=== PATIENT | male | born 1960 | race Caucasian/White ===

== ENCOUNTER 2017-10-20 10:02 | Emergency (ER) | payer OTHER ==
[2017-10-20] MEDS ORDERED: NS 500 ML IV ONE (10:57)
[2017-10-20] MEDS ORDERED: ONDANSETRON 4 MG/2 ML VIAL IVP ONE (10:58)
--- NOTE | 2017-10-20 11:01 | EDPHY ---
H & P Stated Complaint: Epigastric pain since midnight. - Personal History Current Tetanus Diphtheria and Acellular Pertussis (TDAP): Yes - Medical/Surgical History Hx Asthma: Yes Hx Chronic Respiratory Disease: No Hx Diabetes: No Hx Cardiac Disease: Yes Hx Renal Disease: No Hx Cirrhosis: No Hx Alcoholism: No Hx HIV/AIDS: No Hx Splenectomy or Spleen Trauma: No Other PMH: Asthma. Heart valve defect. HTN. - Social History Smoking Status: Never smoked Time Seen by Provider: 10/20/17 10:46 HPI/ROS: CHIEF COMPLAINT: Epigastric pain, chest discomfort HISTORY OF PRESENT ILLNESS: 57-year-old male arrives via private vehicle with his complaining of epigastric abdominal pain, "heartburn" nausea since midnight. The pain was improved with 3 hot showers, back to back. History of daily marijuana use for several decades. Denies: Back pain, vomiting, syncope or near syncope, headache, jaw pain, arm pain, syncope, near syncope. PRIMARY CARE PROVIDER: Julio REVIEW OF SYSTEMS: A ten point review of systems was performed and is negative with the exception of the items mentioned in the HPI PAST MEDICAL & SURGICAL HISTORY: COPD. Hypertension. No history of known cardiac disease. No history of abdominal surgeries or chronic pathology. SOCIAL HISTORY:Daily marijuana use. PHYSICAL EXAM (Prior to examination, patient consented to physical exam, hands were washed and my usual and customary physical exam procedures followed) 1) GENERAL: Well-developed, well-nourished, alert and oriented. Appears uncomfortable 2) HEAD: Normocephalic, atraumatic 3) HEENT: Pupils equal, round, reactive to light bilaterally. Sclera anicteric. Nasopharynx, oropharynx, clear, no lesions. 4) NECK: Full range of motion, no meningeal signs. No carotid bruit 5) LUNGS: Clear auscultation bilaterally, no wheezes, no rhonchi, no retractions. 6) HEART: Regular rate and rhythm, no murmur, no heave, no gallop. 7) ABDOMEN: tender to palpation midline epigastrium, no palpable or pulsatile mass. No distension. Soft. no focal tenderness, negative McBurney's, negative Guevara's, negative Rovsing's, negative peritoneal sign, 8) MUSCULOSKELETAL: Moving all extremities, no focal areas of tenderness, no obvious trauma. No peripheral edema or discoloration. Negative Homans no palpable cord 9) BACK: No CVA tenderness, no midline vertebral tenderness, no fluctuance, no step-off, no obvious trauma, no visual or palpable abnormality. 10) SKIN: No rash, no petechiae. 11) Psychiatric: Patient is oriented X 3, there is no agitation. DIFFERENTIAL DIAGNOSIS: In no particular order, including but not limited to biliary colic, cholecystitis, peptic ulcer disease, pancreatitis, and gastroenteritis. This is a partial list of diagnoses considered. These considerations are based on history, physical exam, past history and reassessment. (Barbara Nick) Constitutional: Initial Vital Signs Temperature (C) 36.5 C 10/20/17 10:09 Heart Rate 74 10/20/17 10:09 Respiratory Rate 18 10/20/17 10:09 Blood Pressure 184/103 H 10/20/17 10:09 O2 Sat (%) 97 10/20/17 10:09 O2 Delivery Mode Room Air O2 (L/minute) 2 Allergies/Adverse Reactions: No Known Allergies Allergy (Unverified 10/20/17 10:12) Home Medications: Medication Instructions Recorded Albuterol 10/20/17 Lisinopril 10/20/17 Medical Decision Making - Diagnostics EKG Interpretation: 12 lead EKG is interpreted in Trace master View by emergency department physician. (Sarah Akhtar) ED Course/Re-evaluation: 11:00 a.m.: Care of patient under supervision of secondary supervising physician Dr Akhtar who also evaluated the patient. Patient was re-evaluated with multiple serial examinations. He notes some improvement in symptoms. We discussed his non normal EKG and his laboratory studies. Recommended admission for further cardiac evaluation as the specific etiology of symptoms is not completely clear at this time. A period of time was spent with and his discussing indications risks benefits of admission and they ultimately agree to admission. 12:58 p.m.: Phone consultation with [facility] Dr Jackman who will call me back with admission information 1:28 p.m.: Phone consultation with Dr. Jackman informed the patient has been accepted at [facility] observation unit admitting physician Dr. Conner Khan. [facility] has arranged transport. 2 p.m.: [facility] has arranged transportation with plan for admission at [facility]. Patient informs at this time that he is declining ambulance transportation, he would like to have his drive him and he will more than likely go to [facility] later this afternoon but 1st would like to go home and "get my stuff in order". I have recommended against this. I have recommended that he go via ambulance to [facility] as he is being admitted for epigastric and chest discomfort. I had a lengthy discussion with him and his . In my professional opinion, the patient fully understands the risks to their health and well-being by leaving the emergency department AGAINST MEDICAL ADVICE. By leaving AGAINST MEDICAL ADVICE the patient has verbalized understanding and acceptance of the risks of leaving AGAINST MEDICAL ADVICE, including, but not limited to, , permanent and chronic disability, permanent and chronic loss of income, and other situations and circumstances too numerous to mention herein. I think the patient has the capacity to fully understand these risks. I have offered ample opportunity to answer questions. 2:02 pm: I spoke with [facility] to alert them to the change in patient's plans (Barbara Nick) The patient was evaluated and managed by the physician student assistant. I have reviewed this chart and I agree with the findings and plan of care as documented , as indicated by my signature. I am the secondary supervising physician. ( Sarah Akhtar) - Data Points Laboratory Results: Laboratory Results 10/20/17 10:25 10/20/17 10:25 Medications Given: Discontinued Medications Al Hydroxide/Mg Hydroxide (Maalox Susp) 30 ml PO ONCE ONE Stop: 10/20/17 13:17 Last Admin: 10/20/17 13:28 Dose: 30 ml Hyoscyamine Sulfate (Levsin, Hyomax-Sl) 0.25 mg PO ONCE ONE Stop: 10/20/17 13:17 Last Admin: 10/20/17 13:28 Dose: 0.25 mg Sodium Chloride (Ns) 500 mls @ 1,000 mls/hr IV EDNOW ONE PRN Reason: Protocol Stop: 10/20/17 11:26 Last Admin: 10/20/17 11:13 Dose: 500 mls Lidocaine (Lidocaine 2% Viscous) 15 ml PO ONCE ONE Stop: 10/20/17 13:17 Last Admin: 10/20/17 13:27 Dose: 15 ml Morphine Sulfate (Morphine) 2 mg IVP EDNOW ONE Stop: 10/20/17 10:58 Last Admin: 10/20/17 11:14 Dose: 2 mg Ondansetron HCl (Zofran) 4 mg IVP EDNOW ONE Stop: 10/20/17 10:59 Last Admin: 10/20/17 11:12 Dose: 4 mg Departure - Departure Disposition: Against Medical Advice Clinical Impression: Chest pain Condition: Fair Referrals: [facility]IND[facility]WRIGHT [Other] - As per Instructions
[2017-10-20 11:05] LABS: PLATELET COUNT 242 10^3/uL (150-400)
--- NOTE | 2017-10-20 11:28 | CPEKG ---
Heart Rate: 45 RR Interval: 1333 P-R Interval: 160 QRSD Interval: 110 QT Interval: 556 QTC Interval: 482 P [place]: 18 QRS [place]: 75 T Wave [place]: 209 EKG Severity - ABNORMAL ECG - EKG Impression: BRADYCARDIA WITH IRREGULAR RATE 36-52 EKG Impression: LVH WITH IVCD AND SECONDARY REPOL ABNRM Electronically Signed By: Sarah Akhtar 20-Oct-2017 12:07:52
[2017-10-20] MEDS ORDERED: HYOSCYAMINE SULFATE 0.125 MG TAB PO ONE (13:16)
[2017-10-20] MEDS ORDERED: MAG HYDROX/AL HYDROX/SIMETH 30 ML UDCUP PO ONE (13:16)
[2017-10-20] MEDS ORDERED: LIDOCAINE 2% VISCOUS 15 ML UDCUP PO ONE (13:16)
[2017-10-20 13:31] VITALS: BP 176/104; PULSE 63; RESP 14; TEMP 98.1; O2SAT 96
== END 2017-10-20 14:05 | disposition left against medical advice (07) ==
DX: R07.9 Chest pain, unspecified (principal); J44.9 Chronic obstructive pulmonary disease, unspecified; I10 Essential (primary) hypertension; E86.9 Volume depletion, unspecified
CPT/HCPCS: 96374; J2270; J2405